=== PATIENT | male | born 1935 | race Caucasian/White ===

== ENCOUNTER 2017-06-20 02:45 | Emergency (ER) | payer MEDICARE, OTHER ==
[~2017-06-20] VITALS: Ht 177.8 cm; Wt 80.5 kg
[~2017-06-20 02:45] MED LIST: ASPI81 PO; ATOR10 PO; BIOT10TA PO; CALC600T34 PO; CETI10 PO; GLUC250C5 PO; INDO25; IPRA0.03; METR1GEL2 TOP; PROS5TAB2 PO; TAB-TAB PO; TRAZ50TA4 PO; VIAG100T PO; VITA500C PO; [UNRECOGNIZED DRUG - CODE] EACH EYE
[2017-06-20] MEDS ORDERED: GLUC100013 (03:01)
[2017-06-20] MEDS ORDERED: OMEP40CA2 (03:01)
[2017-06-20] MEDS ORDERED: MULT400T PO (03:01)
[2017-06-20] MEDS ORDERED: ATOR10TA15 PO (03:01)
[2017-06-20] MEDS ORDERED: COQ-30CA2 (03:01)
[2017-06-20] MEDS ORDERED: CETI10CH CHEW (03:01)
[2017-06-20] MEDS ORDERED: APIX2.5T PO (03:01)
[2017-06-20] MEDS ORDERED: IPRA0.06 EACH NARE (03:01)
[2017-06-20] MEDS ORDERED: CALC1TAB87 PO (03:01)
[2017-06-20 03:03] VITALS: BP 112/68; PULSE 104; RESP 18; TEMP 98.4; O2SAT 98
[2017-06-20 03:06] VITALS: RESP 18; O2SAT 98
[2017-06-20 03:38] LABS: HEMATOCRIT 34.9 % (39.0-51.0); HEMOGLOBIN 11.7 GM/DL (13.0-17.0); MEAN CELL VOLUME 97.5 FL (80.0-100.0); MEAN CORPUSCULAR HEMOGLOBIN 32.8 PG (27.0-34.0); MEAN CORPUSCULAR HGB CONC 33.6 % (32.0-36.0); MEAN PLATELET VOLUME 9.6 FL (7.0-11.0); PLATELET COUNT 94 TH/MM3 (150-450); RED BLOOD COUNT 3.58 MIL/MM3 (4.50-5.90); RED CELL DISTRIBUTION WIDTH 15.9 % (11.6-17.2); WHITE BLOOD COUNT 8.1 TH/MM3 (4.0-11.0)
--- NOTE | 2017-06-20 03:38 | RADRPT ---
EXAM DATE/TIME: 06/20/2017 02:54 [place] COMPARISON: No previous studies available for comparison. INDICATIONS : Left upper chest pain. MEDICAL HISTORY : None. SURGICAL HISTORY : None. ENCOUNTER: Initial ACUITY: 1 day PAIN SCORE: 4/10 LOCATION: Left upper chest FINDINGS: PA and lateral views of the chest demonstrate the lungs to be symmetrically aerated without evidence of mass, infiltrate or effusion. The cardiomediastinal contours are unremarkable. Osseous structure s are intact. CONCLUSION: 1. No focal infiltrate. Minimal linear scarring right upper lobe. Mild scoliosis. Ford Wheat MD on June 20, 2017 at 3:34 Board Certified Radiologist. This report was verified electronically.
[2017-06-20 04:01] LABS: CHLORIDE 108 MEQ/L (98-107); SODIUM (NA) 141 MEQ/L (136-145)
[2017-06-20 04:04] LABS: BICARBONATE 28.3 MEQ/L (21.0-32.0); BLOOD UREA NITROGEN 15 MG/DL (7-18); CALCIUM 8.1 MG/DL (8.5-10.1); GLUCOSE,RANDOM 129 MG/DL (74-106)
[2017-06-20 04:08] LABS: CREATININE 0.77 MG/DL (0.60-1.30); GLOMERULAR FILTRATION RATE 97 ML/MIN (>89)
[2017-06-20 04:12] LABS: TROPONIN I LESS THAN 0.02 NG/ML (0.02-0.05)
[2017-06-20 04:21] VITALS: BP 100/53; PULSE 88; RESP 18; O2SAT 97
[2017-06-20 04:36] LABS: BANDS 3 % (0-6); LYMPHOCYTES 13 % (9-44); MONOCYTES 18 % (0-8); NEUTROPHIL # MANUAL DIFF 5.5 TH/MM3 (1.8-7.7); POLYS (SEG NEUTROPHILS) 65 % (16-70)
[2017-06-20 05:15] VITALS: BP 102/59; PULSE 96; RESP 18; O2SAT 97
--- NOTE | 2017-06-20 05:32 | PD ---
HPI Chief Complaint: Chest Pain Time Seen by Provider: 05:04 Travel History International Travel<30 days: No Contact w/Intl Traveler<30days: No Traveled to known affect area: No History of Present Illness HPI The patient is an 81-year-old male with no history of coronary artery disease but who does have a history of chronic atrial fibrillation who complains of a pleuritic chest pain, constant beginning at 11 PM tonight. The pain is located in a tiny area of the left anterior chest. He was working hard yesterday and bending over fixing a garage door but denies any direct trauma. He states he was short of breath in doing this work. He states his last stress test was about [address] 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 He does not smoke anymore and gave up smoking in the . He did start smoking at age 12 and was a heavy smoker for many years. He denies any nausea, shortness of breath, diaphoresis or radiation of pain. The pain is minimal, he states a 3 or 4/10. The pain has now migrated to the back of his neck but still hurts when he takes a deep breath. He denies any fever. To his knowledge, he has never had an angiogram. He takes L Nehal for his atrial fibrillation, atorvastatin for his elevated cholesterol and multaq for rate control. PFSH Past Medical History Hx Anticoagulant Therapy: Yes Atrial Fibrillation: Yes Heart Rhythm Problems: Yes Cancer: No Cardiovascular Problems: Yes High Cholesterol: Yes Diabetes: No Diminished Hearing: No GERD: Yes Hepatitis: No Hiatal Hernia: No Hypertension: No Medical other: Yes (ARTHRITIS) Respiratory: No Immunizations Current: Yes Thyroid Disease: No Tetanus Vaccination: Unknown Influenza Vaccination: Yes Past Surgical History Eye Surgery: Yes (CAT. SX. RIGHT EYE) Pacemaker: No Other Surgery: Yes Social History Alcohol Use: No Tobacco Use: No Substance Use: No Allergies-Medications (Allergen,Severity, Reaction): Coded Allergies: No Known Allergies (Unverified Adverse Reaction, Unknown, 06/20/17) Reported Meds & Prescriptions Reported Meds & Active Scripts Active Reported Coq-10 (Coenzyme Q10 (Ubidecarenone)) 30 Mg Cap Cetirizine (Cetirizine HCl) 10 Mg Chew 10 Mg CHEW DAILY Calcium 600 with Vitamin D (Calcium Carbonate-Cholecalciferol) 600-400 mg-Unit Tab 1 Tab PO DAILY Glucosamine (Glucosamine Sulfate) 1,000 Mg Cap 1,000 Mg DAILY Multaq (Dronedarone) 400 Mg Tab 400 Mg PO BID Omeprazole 40 Mg Cap 80 Mg DAILY Ipratropium Nasal 0.06% [place] 1 [place] EACH NARE QID Eliquis (Apixaban) 2.5 Mg Tab 2.5 Mg PO BID Atorvastatin (Atorvastatin Calcium) 10 Mg Tab 10 Mg PO HS Review of Systems Except as stated in HPI: all other systems reviewed are Neg Physical Exam Narrative GENERAL: The patient is alert, oriented 3 in minimal apparent distress with his initial chest discomfort and now back of neck sensation. His vital signs are normal. SKIN: Focused skin assessment warm/dry. HEAD: Atraumatic. Normocephalic. EYES: Pupils equal and round. No scleral icterus. No injection or drainage. ENT: No nasal bleeding or discharge. Mucous membranes pink and moist. NECK: Trachea midline. No JVD. I cannot reproduce the patient's pain on the neck where he perceives the pain. CARDIOVASCULAR: Regular rate and rhythm. No murmur appreciated. RESPIRATORY: No accessory muscle use. Clear to auscultation. Breath sounds equal bilaterally. I cannot reproduce the patient's pain by pressing on the chest wall where he perceives the pain. GASTROINTESTINAL: Abdomen soft, non-tender, nondistended. Hepatic and splenic margins not palpable. MUSCULOSKELETAL: No obvious deformities. No clubbing. No cyanosis. No edema. NEUROLOGICAL: Awake and alert. No obvious cranial nerve deficits. Motor grossly within normal limits. Normal speech. PSYCHIATRIC: Appropriate mood and affect; insight and judgment normal. Data Data Last Documented VS Vital Signs Date Time Temp Pulse Resp B/P (MAP) Pulse Ox O2 Delivery O2 Flow Rate FiO2 06/20/17 04:21 88 18 100/53 (69) 97 Room Air 06/20/17 03:03 98.4 Orders Orders Electrocardiogram (06/20/17 02:47) Complete Blood Count With Diff (06/20/17 02:47) Basic Metabolic Panel (Bmp) (06/20/17 02:47) Ckmb (Isoenzyme) Profile (06/20/17 02:47) Troponin I (06/20/17 02:47) Iv Access Insert/Monitor (06/20/17 02:47) Ecg Monitoring (06/20/17 02:47) Oxygen Administration (06/20/17 02:47) Oximetry (06/20/17 02:47) Chest, Pa & Lat (06/20/17 02:47) CKMB (06/20/17 03:20) CKMB% (06/20/17 03:20) Labs Laboratory Tests Test 06/20/17 03:20 White Blood Count 8.1 TH/MM3 Red Blood Count 3.58 MIL/MM3 Hemoglobin 11.7 GM/DL Hematocrit 34.9 % Mean Corpuscular Volume 97.5 FL Mean Corpuscular Hemoglobin 32.8 PG Mean Corpuscular Hemoglobin Concent 33.6 % Red Cell Distribution Width 15.9 % Platelet Count 94 TH/MM3 Mean Platelet Volume 9.6 FL CBC Comment AUTO DIFF Differential Total Cells Counted 100 Neutrophils % (Manual) 65 % Band Neutrophils % 3 % Lymphocytes % 13 % Monocytes % 18 % Eosinophils % 1 % Neutrophils # (Manual) 5.5 TH/MM3 Differential Comment FINAL DIFF MANUAL Platelet Estimate LOW Platelet Morphology Comment NORMAL Red Cell Morphology Comment NORMAL Blood Urea Nitrogen 15 MG/DL Creatinine 0.77 MG/DL Random Glucose 129 MG/DL Calcium Level 8.1 MG/DL Sodium Level 141 MEQ/L Potassium Level 3.7 MEQ/L Chloride Level 108 MEQ/L Carbon Dioxide Level 28.3 MEQ/L Anion Gap 5 MEQ/L Estimat Glomerular Filtration Rate 97 ML/MIN Total Creatine Kinase 138 U/L Creatine Kinase MB 2.9 NG/ML Troponin I LESS THAN 0.02 NG/ML MDM Medical Decision Making Medical Screen Exam Complete: Yes Emergency Medical Condition: Yes Medical Record Reviewed: Yes Interpretation(s) The EKG shows atrial fibrillation with response rate of [address] elevation or depression. The CBC shows a hemoglobin of 11.7 and hematocrit of 34.9 with 94,000 platelets but is otherwise normal. The basic metabolic profile shows a glucose of 100 or 29, calcium 8.1 but is otherwise normal. The CK-MB is normal and the troponin I is normal. The chest x-ray shows no focal infiltrate. There is minimal scarring in the right upper lobe and mild scoliosis. Differential Diagnosis Atypical chest pain, acute coronary syndrome, congestive heart failure-unlikely , chronic atrial fibrillation, electrolyte disorder, pleuritic chest pain, chest wall pain, musculoskeletal pain, esophageal pain, gastrointestinal pain Narrative Course The patient appears to have atypical chest pain. He was offered stress test here at this hospital but declined. He is told to call Dr. Herron and talk to him about getting a stress test. He was not very enthusiastic about doing even this. He states he does not like to be in hospitals and does not like to go to doctor's offices. Diagnosis Primary Impression: Atypical chest pain Additional Instructions: If you have the chest heaviness, sweatiness, nausea with the chest pain, please call an ambulance and return to the emergency department. At this time and your pain looks like it is from something else besides heart. Med/Other Pt SpecificInfo: No Change to Meds Disposition: 01 DISCHARGE HOME Condition: Stable Sanjeev Garcia MD Jun 20, 2017 05:32
--- NOTE | 2017-06-21 00:35 | EKG ---
Date Performed: 06/20/2017 Time Performed: 02:54:01 PTAGE: 81 years EKG: ATRIAL FIBRILLATION WITH RAPID VENTRICULAR RESPONSE NONSPECIFIC T-WAVE ABNORMALITY ABNORMAL RHYTHM ECG PREVIOUS TRACING : 05/19/2011 11.14 Compared to prior tracing, previously Sinus rhythm , non-specific ST/T wave changes are new DOCTOR: Raymundo Pang Interpretating Date/Time 06/21/2017 00:34:15
== END 2017-06-20 06:15 | disposition home or self-care (01) ==
LOC: PHED 02:45
DX: R07.89 Other chest pain (principal); I48.2 Chronic atrial fibrillation; I25.10 Atherosclerotic heart disease of native coronary artery without angina pectoris; E78.00 Pure hypercholesterolemia, unspecified; K21.9 Gastro-esophageal reflux disease without esophagitis; M19.90 Unspecified osteoarthritis, unspecified site; Z87.891 Personal history of nicotine dependence; Z79.01 Long term (current) use of anticoagulants; Z79.899 Other long term (current) drug therapy
CPT/HCPCS: 71046; 80048; 82550; 82552; 84484; 85007; 85027; 93005